=== PATIENT | female | born 1925 | race Caucasian/White ===

== ENCOUNTER 2017-05-03 14:14 | Inpatient (IN) | payer OTHER, MEDICARE ==
[2017-05-03 14:36] VITALS: BMI 23.8
[2017-05-03] MEDS ORDERED: morphine CARPU-JECT 2 MG/1 ML DISP.SYRIN IVPUSH ONE ×2 (14:41→18:02)
[2017-05-03] MEDS ORDERED: morphine CARPU-JECT 2 MG/1 ML DISP.SYRIN ONE (14:49)
--- NOTE | 2017-05-03 15:19 | PDOC ---
History of Present Illness - General Chief Complaint: Injury Stated Complaint: FALL Time Seen by Provider: 05/03/17 14:33 History Source: Patient Exam Limitations: No Limitations - History of Present Illness Initial Comments: 05/03/17 15:09 89-year-old female presents tpo the ED with complaints of right hip pain. As per patient she was walking which she was when she had tripped landing on her right side. Patient states was unable to get up and EMS states patient had a shortened and externally rotated right lower extremity. Patient denies previous injury to the affected area and denies any radiation of pain. Patient states had no LOC and did not strike her head. Patient's currently on aspirin. Occurred: reports: just prior to arrival Severity: reports: moderate Pain Location: reports: lower extremity Method of Injury: Yes: fall Modifying Factors: improves with: None Loss of Consciousness: no loss of consciousness Associated Symptoms (Fall): trouble walking Past History - Travel Traveled outside of the country in the last 30 days: No Close contact w/someone who was outside of country & ill: No - Past Medical History Allergies/Adverse Reactions: Allergies Allergy/AdvReac Type Severity Reaction Status Date / Time No Known Allergies Allergy Verified 05/03/17 14:39 Home Medications: Ambulatory Orders Furosemide [Lasix -] 40 mg PO DAILY #0 tablet 02/07/14 Amlodipine Besylate [Norvasc -] 5 mg PO DAILY tablet 06/14/16 Gabapentin [Neurontin -] 100 mg PO Q8H 05/03/17 Acetaminophen [Tylenol .Regular Strength -] 650 mg PO Q6H PRN #0 tablet Amlodipine Besylate [Norvasc -] 5 mg PO DAILY tablet 05/07/17 Aspirin [ASA -] 325 mg PO DAILY tablet 05/07/17 Calcitonin-[place] [Miacalcin [place] -] 200 units NS DAILY #1 bottle 05/07/17 Docusate Sodium [Colace -] 300 mg PO HS #30 tab 05/07/17 Ferrous Sulfate [Feosol] 325 mg PO BID #60 tab 05/07/17 Furosemide [Lasix -] 40 mg PO DAILY tablet 05/07/17 Metoprolol Succinate [Toprol XL -] 100 mg PO DAILY #30 tab 05/07/17 Metoprolol Succinate [Toprol XL -] 100 mg PO DAILY #30 tab.sr.24h 05/07/17 Oxycodone HCl [Roxicodone -] 5 mg PO Q6H PRN #0 tablet MDD 4 05/07/17 Ranitidine [Zantac -] 150 mg PO DAILY tablet 05/07/17 Anemia: No Asthma: No Cancer: No Cardiac Disorders: Yes (Afib, thoracic anuerysm) CVA: No COPD: No CHF: No Dementia: Yes Diabetes: No GI Disorders: No Disorders: No HTN: Yes Hypercholesterolemia: No Liver Disease: No Seizures: No Thyroid Disease: No Other medical history: arthritis, nerve pain, unsteady gait - Surgical History Abdominal Surgery: No Appendectomy: No Cardiac Surgery: Yes (AAA DISSECTION WITH REPAIR) Cholecystectomy: No Lung Surgery: No Orthopedic Surgery: No - Immunization History Immunization Up to Date: Yes - Psycho/Social/Smoking Cessation Hx Suicidal Ideation: No Smoking History: Unknown if ever smoked Have you smoked in the past 12 months: No Hx Alcohol Use: No Drug/Substance Use Hx: No Substance Use Type: None Hx Substance Use Treatment: No Patient Lives Alone: No Lives with/in: daughter Trauma Specific PMHX - Complaint Specific PMHX Arthritis: Yes Back Injury: No Review of Systems - Review of Systems Able to Perform ROS?: Yes Constitutional: No: Symptoms Reported Respiratory: No: Symptoms reported Cardiac (ROS): No: Symptoms Reported ABD/GI: No: Symptoms Reported Musculoskeletal: Yes: Joint Pain (right hip) Integumentary: No: Symptoms Reported Neurological: No: Symptoms reported *Physical Exam - Vital Signs Last Vital Signs Temp Pulse Resp BP Pulse Ox 98.0 F 73 16 169/59 95 05/03/17 14:33 05/03/17 14:33 05/03/17 14:33 05/03/17 14:33 05/03/17 14:33 - Physical Exam General Appearance: Yes: Nourished, Appropriately Dressed, Mild Distress (in pain) Neck: positive: Supple. negative: Tender, Decreased range of motion Respiratory/Chest: positive: Lungs Clear, Normal Breath Sounds. negative: Respiratory Distress, Accessory Muscle Use Cardiovascular: positive: Regular Rhythm, Regular Rate. negative: Murmur Gastrointestinal/Abdominal: positive: Soft. negative: Tenderness Extremity: positive: Normal Capillary Refill. negative: Normal Range of Motion (rle. externally rotated and shortened. tender over lateral aspect of right hip. unable to move rle) Neurologic: positive: Normal Mood/Affect, Motor Strength 5/5 (LLE and BUE) Heart Score/ECG Review - ECG Intrepretation Rhythm: Regular Rhythm (sinus rhythm at 73. no acute findings) ED Treatment Course - LABORATORY CBC & Chemistry Diagram: 05/07/17 06:00 05/07/17 06:00 - RADIOLOGY Radiology Studies Ordered: Category Date Time Status CHEST X-RAY PORTABLE* [RAD] Stat Radiology 05/03/17 14:41 Ordered HIP & PELVIS-RIGHT [RAD] Stat Radiology 05/03/17 14:42 Ordered Medical Decision Making - Medical Decision Making 05/03/17 15:50 Patient status post fall unable to move right lower extremity. Based on clinical exam patient is likely fracture and/or dislocation. Patient ordered for preop labs, IV morphine and imaging. 05/03/17 17:09 Laboratory Tests 05/03/17 05/03/17 05/03/17 15:15 15:15 15:15 WBC 4.9 Hgb 13.4 Hct 39.5 Plt Count 180 Neutrophils % 70.1 INR 1.10 Sodium 140 Potassium 4.3 Chloride 105 Carbon Dioxide 28 Anion Gap 7 L BUN 25 H D Creatinine 1.0 D Creat Clearance w eGFR 52.20 Random Glucose 108 H D Calcium 9.6 Total Bilirubin 0.4 D AST 24 ALT 23 D UA pending but will obtain once Evans catheter is placed. Case discussed with Dr. Reece secondary kelsy acute right femoral intertrochanteric fracture that will require orthopedic consultation and surgery. He is recommending Dr. Ngo or Narinder for consultation. 05/03/17 18:[address] Ngo and aware of consultation. Will eval pt shortly. Pt comfortable. Family at bedside *DC/Admit/Observation/Transfer Diagnosis at time of Disposition: Fracture, intertrochanteric, right femur Qualifiers: Encounter type: initial encounter Fracture alignment: displaced - Discharge Dispostion Disposition[facility] Condition at time of disposition: Improved Admit: Yes
[2017-05-03 15:28] LABS: BASOPHIL 0.8 % (0-2.0); EOSINOPHIL 1.5 % (0-4.5); MCH 30.3 pg (25.7-33.7); MCHC 33.9 g/dl (32.0-36.0); MEAN CELL VOLUME 89.3 fl (80-96); MEAN PLT VOLUME 8.8 fl (7.5-11.1); NEUTROPHILS 70.1 % (42.8-82.8); PLATELET COUNT 180 K/MM3 (134-434); WHITE BLOOD COUNT 4.9 K/mm3 (4.0-10.0)
[2017-05-03 15:51] LABS: INR 1.1 (0.82-1.09); PROTHROMBIN TIME (PATIENT) 12.1 SEC (9.98-11.88)
[2017-05-03 15:55] LABS: ALBUMIN 4.1 g/dl (3.4-5.0); ANION GAP 7 (8-16); BILIRUBIN,TOTAL 0.4 mg/dL (0.2-1.0); CALCIUM 9.6 mg/dL (8.5-10.1); CO2 28 mmol/L (21-32); GLUCOSE,RANDOM 108 mg/dL (74-106); SGOT/AST 24 U/L (15-37); SGPT/ALT 23 U/L (12-78); TOT PROT 7.5 g/dl (6.4-8.2)
[2017-05-03 15:56] LABS: ALK PHOS 110 U/L (45-117)
[2017-05-03] MEDS ORDERED: HYDROmorphone HCL CARPU-JECT 2 MG/1 ML DISP.SYRIN IVPUSH ONE (16:48)
--- NOTE | 2017-05-03 16:49 | PDOC ---
*Physical Exam - Vital Signs Last Vital Signs Temp Pulse Resp BP Pulse Ox 98.0 F 78 18 107/54 98 05/03/17 14:33 05/03/17 16:02 05/03/17 16:02 05/03/17 16:02 05/03/17 16:02 ED Treatment Course - LABORATORY CBC & Chemistry Diagram: 05/03/17 15:15 05/03/17 15:15 - ADDITIONAL ORDERS Additional order review: Laboratory Results 05/03/17 05/03/17 05/03/17 15:15 15:15 15:15 INR 1.10 Sodium 140 Potassium 4.3 Chloride 105 Carbon Dioxide 28 Anion Gap 7 L BUN 25 H D Creatinine 1.0 D Creat Clearance w eGFR 52.20 Random Glucose 108 H D Calcium 9.6 Total Bilirubin 0.4 D AST 24 ALT 23 D Alkaline Phosphatase 110 D Total Protein 7.5 Albumin 4.1 Blood Type O POSITIVE Antibody Screen Positive H 05/03/17 15:15 RBC 4.42 MCV 89.3 MCHC 33.9 RDW 14.0 MPV 8.8 Neutrophils % 70.1 Lymphocytes % 20.2 D Monocytes % 7.4 Eosinophils % 1.5 D Basophils % 0.8 D - Medications Given in the ED: ED Medications Discontinued Medications Generic Name Dose Route Start Last Admin Trade Name Freq PRN Reason Stop Dose Admin Morphine Sulfate 2 mg 05/03/17 14:41 05/03/17 15:20 Morphine Injection - IVPUSH 05/03/17 14:42 2 mg ONCE ONE Administration Medical Decision Making - Medical Decision Making 05/03/17 16:48 I agree with KRYSTYNA Williamson's history, assessment and plan. *DC/Admit/Observation/Transfer Diagnosis at time of Disposition: Fracture, intertrochanteric, right femur Qualifiers: Encounter type: initial encounter Fracture alignment: displaced - Attestations Physician Attestion: 05/04/17 07:38 I, Dr. Sadia Medina MD, attest that this document has been prepared under my direction and personally reviewed by me in its entirety. I further attest, that it accurately reflects all work, treatment, procedures and medical decision -making performed by me.
[2017-05-03] MEDS ORDERED: ONDANSETRON 4 MG/2 ML VIAL IVPB PRN (17:52)
[2017-05-03] MEDS ORDERED: ACETAMINOPHEN 325 MG TABLET (FP) PO PRN (17:52)
[2017-05-03] MEDS ORDERED: SODIUM CHLORIDE 500 ML IV STA (18:01)
[2017-05-03] MEDS ORDERED: HYDROmorphone HCL CARPU-JECT 1 MG/1 ML DISP.SYRIN ONE ×2 (18:20→19:58)
[2017-05-03] MEDS ORDERED: RANITIDINE HCL 150 MG TABLET (FP) ONE (19:45)
[2017-05-03] MEDS: RANITIDINE HCL 150 MG TABLET (FP) PO SCH (19:55)
[2017-05-03] MEDS: HYDROmorphone HCL CARPU-JECT 1 MG/1 ML DISP.SYRIN IVPB PRN (20:03)
[2017-05-03 20:12] LABS: URINE APPEARANCE SLCLOUDY; URINE BILIRUBIN NEGATIVE (NEGATIVE); URINE BLOOD NEGATIVE (NEGATIVE); URINE COLOR LTYELLOW; URINE GLUCOSE (UA) NEGATIVE (NEGATIVE); URINE KETONE NEGATIVE (NEGATIVE); URINE LEUK ESTERASE NEGATIVE (NEGATIVE); URINE NITRITE NEGATIVE (NEGATIVE); URINE UROBILINOGEN NEGATIVE mg/dL (0.2-1.0)
[2017-05-03 20:13] LABS: URINE PROTEIN 1+ (NEGATIVE)
[2017-05-03 20:14] LABS: URINE BACTERIA RARE /hpf (NONE SEEN); URINE MUCUS RARE; URINE RBC 1 /hpf (0-3); URINE WBC 1 /hpf (3-5)
--- NOTE | 2017-05-03 21:20 | CONSULT ---
Consult - text type - Consultation Consultation Note: FULL CONSULT DICTATE IMP: RIGHT IT HIP FX PLAN: MEDICAL OPTIMIZATION THEN ---> OR FOR RIGHT GAMMA NAIL, TENTATIVELY FOR FRIDAY
[2017-05-03] MEDS: HEPARIN NA (PORCINE) 5,000 UNITS/ML 1ML VIAL SQ SCH (21:53)
[2017-05-03] MEDS: DOCUSATE SODIUM 100 MG CAPSULE (FP) PO SCH (21:53)
[2017-05-04] MEDS: HYDROmorphone HCL CARPU-JECT 1 MG/1 ML DISP.SYRIN IVPB PRN ×3 (06:37→20:34)
[2017-05-04 08:11] LABS: MCH 30.1 pg (25.7-33.7); MCHC 34.1 g/dl (32.0-36.0); MEAN CELL VOLUME 88.3 fl (80-96); MEAN PLT VOLUME 8.6 fl (7.5-11.1); PLATELET COUNT 162 K/MM3 (134-434); RDW 13.7 % (11.6-15.6); WHITE BLOOD COUNT 6.7 K/mm3 (4.0-10.0)
[2017-05-04 08:38] LABS: ALBUMIN 3.9 g/dl (3.4-5.0); CALCIUM 8.6 mg/dL (8.5-10.1)
[2017-05-04 08:43] LABS: ALK PHOS 84 U/L (45-117); ANION GAP 7 (8-16); BILIRUBIN,TOTAL 0.9 mg/dL (0.2-1.0); CO2 26 mmol/L (21-32); CREATININE 0.7 mg/dL (0.55-1.02); GLUCOSE,RANDOM 114 mg/dL (74-106); SGOT/AST 22 U/L (15-37); SGPT/ALT 18 U/L (12-78); TOT PROT 6.7 g/dl (6.4-8.2)
[2017-05-04] MEDS: HEPARIN NA (PORCINE) 5,000 UNITS/ML 1ML VIAL SQ SCH ×2 (10:11→22:15)
[2017-05-04] MEDS: RANITIDINE HCL 150 MG TABLET (FP) PO SCH (10:11)
[2017-05-04] MEDS: FUROSEMIDE 40 MG TABLET (FP) PO SCH (10:11)
[2017-05-04] MEDS: amLODIPine BESYLATE 5 MG TABLET (FP) PO SCH (10:11)
[2017-05-04] MEDS: METOPROLOL SUCCINATE 100 MG TAB.SR.24H (FP) PO SCH (10:11)
--- NOTE | 2017-05-04 10:56 | HP ---
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 Cardiovascular: Yes: HTN ...: No Psych: Yes: Other Musculoskeletal: Yes: Osteoarthritis - Smoking History Smoking history: Unknown if ever smoked Have you smoked in the past 12 months: No - Alcohol/Substance Use Hx Alcohol Use: No Home Medications - Allergies Allergies/Adverse Reactions: Allergies Allergy/AdvReac Type Severity Reaction Status Date / Time No Known Allergies Allergy Verified 05/03/17 14:39 - Home Medications Home Medications: Ambulatory Orders Furosemide [Lasix -] 40 mg PO DAILY #0 tablet 02/07/14 Amlodipine Besylate [Norvasc -] 5 mg PO DAILY tablet 06/14/16 Metoprolol Succinate [Toprol XL -] 100 mg PO DAILY tab.sr.24h 06/14/16 Gabapentin [Neurontin -] 100 mg PO Q8H 05/03/17 Review of Systems - Review of Systems Constitutional: reports: No Symptoms Eyes: reports: No Symptoms HENT: reports: No Symptoms, Ocular Prosthesis Cardiovascular: reports: No Symptoms Respiratory: reports: No Symptoms Gastrointestinal: reports: No Symptoms Genitourinary: reports: Incontinence Musculoskeletal: reports: Extremity Pain, Joint Pain, Muscle Pain, Muscle Weakness Integumentary: reports: No Symptoms Neurological: reports: Pre-Existing Deficit Endocrine: reports: No Symptoms Hematology/Lymphatic: reports: No Symptoms Psychiatric: reports: No Symptoms Physical Examination Vital Signs: Vital Signs Temperature 98.5 F 05/04/17 08:04 Pulse Rate 98 H 05/04/17 08:04 Respiratory Rate 18 05/04/17 08:04 Blood Pressure 159/93 05/04/17 08:04 O2 Sat by Pulse Oximetry (%) 100 05/03/17 22:42 Findings/Remarks: SON BEDSIDE, PATIENT CAN NOT REMEMBER WHAT HAPPENED Constitutional: Yes: Moderate Distress Eyes: Yes: WNL HENT: Yes: WNL Neck: Yes: WNL Cardiovascular: Yes: WNL Respiratory: Yes: WNL Gastrointestinal: Yes: WNL Musculoskeletal: Yes: Muscle Pain, Muscle Weakness Extremities: Yes: Other Edema: No Peripheral Pulses WNL: Yes Integumentary: Yes: WNL Wound/Incision: Yes: Clean/Dry Neurological: Yes: Pre-Existing Deficit, Unresponsive, Unsteady Gait, Weakness ...Motor Strength: LLE, RLE Psychiatric: Yes: Other Labs: CBC, BMP 05/04/17 06:00 05/04/17 06:00 Imaging - Results X-ray: Report Reviewed Problem List - Problems (1) Fracture, intertrochanteric, right femur Code(s): S72.141A - DISPLACED INTERTROCHANTERIC FRACTURE OF RIGHT FEMUR, INIT Qualifiers: Encounter type: initial encounter Fracture alignment: displaced (2) Displaced fracture of right femoral neck Code(s): S72.001A - FRACTURE OF UNSP PART OF NECK OF RIGHT FEMUR, INIT (3) HTN (hypertension) Code(s): I10 - ESSENTIAL (PRIMARY) HYPERTENSION Qualifiers: Hypertension type: essential hypertension Qualified Code(s): I10 - Essential (primary) hypertension (4) Dementia Code(s): F03.90 - UNSPECIFIED DEMENTIA WITHOUT BEHAVIORAL DISTURBANCE Qualifiers: Dementia type: unspecified type Assessment/Plan MEDICAL CLEARANCE FOR GAMMA NAIL HIP SURGERY CARDIOLOGY EVAL PAIN CONTROL LABS
[2017-05-04] MEDS: CALCITONIN - SALMON SYNTHETIC 3.7 ML SPRAY.PUMP NS SCH (14:04)
--- NOTE | 2017-05-04 15:26 | CONS ---
DATE OF CONSULTATION: 05/03/2017 The patient is an 89-year-old female status post fall today, complaining of significant pain in the right hip with inability to ambulate. On physical exam, the patient has a shortened externally rotated right hip, marked increased pain with range of motion, full range of motion of the ankle and toes. Calf is soft, nontender. Neurovascularly intact. X-rays displaced right intertrochanteric hip fracture. IMPRESSION: Right intertrochanteric hip fracture. PLAN: The patient will be medically optimized, then scheduled for operative intervention with right gamma nailing, tentatively scheduled for Friday, pending medical clearance. JOHNSON ALEMAN M.D. DIOGO/[id number]
--- NOTE | 2017-05-04 15:36 | CON.CARD ---
Consult Consult Specialty:: cardiology for Ronny - History of Present Illness History of Present Illness: 89-year-old female presents tpo the ED with complaints of right hip pain. As per patient she was walking which she was when she had tripped landing on her right side. Patient states was unable to get up and EMS states patient had a shortened and externally rotated right lower extremity. Patient denies previous injury to the affected area and denies any radiation of pain. Patient states had no LOC and did not strike her head. Patient's currently on aspirin. 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 Cardio/Vascular: Yes: HTN ...: No Psych: Yes: Other Musculoskeletal: Yes: Osteoarthritis - Alcohol/Substance Use Hx Alcohol Use: No - Smoking History Smoking history: Unknown if ever smoked Have you smoked in the past 12 months: No Home Medications - Allergies Allergies/Adverse Reactions: Allergies Allergy/AdvReac Type Severity Reaction Status Date / Time No Known Allergies Allergy Verified 05/03/17 14:39 - Home Medications Home Medications: Ambulatory Orders Furosemide [Lasix -] 40 mg PO DAILY #0 tablet 02/07/14 Amlodipine Besylate [Norvasc -] 5 mg PO DAILY tablet 06/14/16 Metoprolol Succinate [Toprol XL -] 100 mg PO DAILY tab.sr.24h 06/14/16 Gabapentin [Neurontin -] 100 mg PO Q8H 05/03/17 Review of Systems - Review of Systems Constitutional: reports: No Symptoms Eyes: reports: No Symptoms HENT: reports: No Symptoms Neck: reports: No Symptoms Cardiovascular: reports: No Symptoms Gastrointestinal: reports: No Symptoms Genitourinary: reports: No Symptoms Breasts: reports: No Symptoms Reported Musculoskeletal: reports: No Symptoms Integumentary: reports: No Symptoms Neurological: reports: No Symptoms Endocrine: reports: No Symptoms Hematology/Lymphatic: reports: No Symptoms Psychiatric: reports: No Symptoms Vital Signs: Vital Signs Temperature 99.2 F 05/04/17 15:27 Pulse Rate 81 05/04/17 15:27 Respiratory Rate 18 05/04/17 15:27 Blood Pressure 146/65 05/04/17 15:27 O2 Sat by Pulse Oximetry (%) 94 L 05/04/17 09:00 Constitutional: Yes: Well Nourished, No Distress, Calm Eyes: Yes: WNL, Conjunctiva Clear, EOM Intact HENT: Yes: WNL, Atraumatic, Normocephalic Neck: Yes: WNL, Supple, Trachea Midline Respiratory: Yes: WNL, Regular, CTA Bilaterally Gastrointestinal: Yes: WNL, Normal Bowel Sounds Renal/: Yes: WNL Cardiovascular: Yes: WNL, Regular Rate and Rhythm Heart Sounds: Yes: S1, S2 Musculoskeletal: Yes: WNL Extremities: Yes: WNL Integumentary: Yes: WNL Neurological: Yes: WNL, Alert, Oriented ...Motor Strength: WNL Psychiatric: Yes: WNL, Alert, Oriented - Other Data Labs, Other Data: CBC, BMP 05/04/17 06:00 05/04/17 06:00 INR, PTT INR 1.10 (0.82-1.09) 05/03/17 15:15 Imaging - Results Chest X-ray: Image Reviewed (s/p sternpstomy) EKG: Image Reviewed (sr lvh ewp abn) Problem List - Problems (1) Dementia Code(s): F03.90 - UNSPECIFIED DEMENTIA WITHOUT BEHAVIORAL DISTURBANCE Qualifiers: Dementia type: unspecified type (2) Fracture, intertrochanteric, right femur Code(s): S72.141A - DISPLACED INTERTROCHANTERIC FRACTURE OF RIGHT FEMUR, INIT Qualifiers: Encounter type: initial encounter Fracture alignment: displaced (3) Displaced fracture of right femoral neck Code(s): S72.001A - FRACTURE OF UNSP PART OF NECK OF RIGHT FEMUR, INIT (4) Bronchitis Code(s): J40 - BRONCHITIS, NOT SPECIFIED ACUTE OR CHRONIC (5) Fever Code(s): R50.9 - FEVER, UNSPECIFIED (6) HTN (hypertension) Code(s): I10 - ESSENTIAL (PRIMARY) HYPERTENSION Qualifiers: Hypertension type: essential hypertension Qualified Code(s): I10 - Essential (primary) hypertension (7) Nausea and vomiting Code(s): R11.2 - NAUSEA WITH VOMITING, UNSPECIFIED Qualifiers: Vomiting type: unspecified Vomiting Intractability: non-intractable Qualified Code(s): R11.2 - Nausea with vomiting, unspecified (8) Near syncope Code(s): R55 - SYNCOPE AND COLLAPSE (9) Sinusitis Code(s): J32.9 - CHRONIC SINUSITIS, UNSPECIFIED (10) UTI (urinary tract infection) Code(s): N39.0 - URINARY TRACT INFECTION, SITE NOT SPECIFIED Qualifiers: Urinary tract infection type: acute cystitis Hematuria presence: without hematuria Qualified Code(s): N30.00 - Acute cystitis without hematuria (11) Weakness Code(s): R53.1 - WEAKNESS Assessment/Plan hip fx, s/p fall, htn, history of type A dissection s/p open surgical repair at [place] > 3 years ago, chronic HTN, PAF (remote history, no longer on full AC), dementia abn ekg plan ECHO if ef nl pt is low risk for gamma nail coverage for dr. Jefferson
--- NOTE | 2017-05-04 20:49 | EKG ---
Test Reason : Blood Pressure : / mmHG Vent. Rate : 073 BPM Atrial Rate : 073 BPM P-R Int : 208 ms QRS Dur : 118 ms QT Int : 402 ms P-R-T Axes : 033 -43 145 degrees QTc Int : 442 ms NORMAL SINUS RHYTHM WITH 1ST DEGREE A-V BLOCK LEFT AXIS DEVIATION RIGHT BUNDLE BRANCH BLOCK LEFT VENTRICULAR HYPERTROPHY CANNOT RULE OUT SEPTAL INFARCT (CITED ON OR BEFORE 11-JUN-2016) NONSPECIFIC T WAVE ABNORMALITY ABNORMAL ECG WHEN COMPARED WITH ECG OF 11-JUN-2016 21:22, NONSPECIFIC T WAVE ABNORMALITY MORE PROMINENT IN HIGH LATERAL LEADS Confirmed by BA ANTONY MD ([id number]) on 05/04/2017 8:49:00 PM Referred By: Confirmed By:BA ANTONY MD
[2017-05-04] MEDS: DOCUSATE SODIUM 100 MG CAPSULE (FP) PO SCH (22:15)
[2017-05-05] MEDS: HYDROmorphone HCL CARPU-JECT 1 MG/1 ML DISP.SYRIN IVPB PRN ×2 (05:40→21:39)
[2017-05-05 08:13] LABS: MCH 30.1 pg (25.7-33.7); MCHC 34.3 g/dl (32.0-36.0); MEAN PLT VOLUME 8.6 fl (7.5-11.1); PLATELET COUNT 172 K/MM3 (134-434); RDW 13.7 % (11.6-15.6); WHITE BLOOD COUNT 9.6 K/mm3 (4.0-10.0)
[2017-05-05 08:38] LABS: ANION GAP 11 (8-16); CALCIUM 9.2 mg/dL (8.5-10.1); CO2 28 mmol/L (21-32); GLUCOSE,RANDOM 129 mg/dL (74-106)
[2017-05-05 08:39] LABS: CREATININE 0.8 mg/dL (0.55-1.02)
--- NOTE | 2017-05-05 08:42 | PN ---
Progress Note, Physician Chief Complaint: no chest pain or SOB - Current Medication List Current Medications: Active Medications Acetaminophen (Tylenol -) 650 mg PO Q6H PRN PRN Reason: FEVER OR PAIN Amlodipine Besylate (Norvasc -) 5 mg PO DAILY [facility] Last Admin: 05/04/17 10:11 Dose: 5 mg Calcitonin (Miacalcin [place] -) 200 units NS DAILY [facility] Last Admin: 05/04/17 14:04 Dose: 200 units Docusate Sodium (Colace -) 300 mg PO HS [facility] Last Admin: 05/04/17 22:15 Dose: 300 mg Furosemide (Lasix -) 40 mg PO DAILY [facility] Last Admin: 05/04/17 10:11 Dose: 40 mg Heparin Sodium (Porcine) (Heparin -) 5,000 unit SQ BID [facility] Last Admin: 05/04/17 22:15 Dose: 5,000 unit Hydromorphone HCl (Dilaudid Injection -) 0.5 mg IVPB Q6H PRN PRN Reason: PAIN Last Admin: 05/05/17 05:40 Dose: 0.5 mg Metoprolol Succinate (Toprol Xl -) 100 mg PO DAILY [facility] Last Admin: 05/04/17 10:11 Dose: 100 mg Ondansetron HCl (Zofran Injection) 4 mg IVPB Q6H PRN PRN Reason: NAUSEA Ranitidine HCl (Zantac -) 150 mg PO DAILY [facility] Last Admin: 05/04/17 10:11 Dose: 150 mg - Objective Vital Signs: Vital Signs Temperature 99.5 F 05/05/17 06:00 Pulse Rate 92 H 05/05/17 06:00 Respiratory Rate 20 05/05/17 06:00 Blood Pressure 158/78 05/05/17 06:00 O2 Sat by Pulse Oximetry (%) 94 L 05/04/17 20:49 Constitutional: Yes: Calm Eyes: Yes: Conjunctiva Clear Cardiovascular: Yes: Regular Rate and Rhythm, Other (No murmur) Respiratory: Yes: CTA Bilaterally Gastrointestinal: Yes: Soft Edema: No Neurological: Yes: Alert Labs: CBC, BMP 05/05/17 07:00 INR, PTT INR 1.10 (0.82-1.09) 05/03/17 15:15 Laboratory Tests 05/05/17 05/05/17 07:00 07:00 WBC 9.6 D Hgb 12.1 Hct 35.2 Plt Count 172 Potassium Pending Creatinine Pending Assessment/Plan Hip fx, s/p fall History of type A dissection s/p open surgical repair at [place] > 3 years ago Chronic HTN PAF (remote history, no longer on full AC) Dementia Plan: There are presently no absolute contraindications to surgery for hip fracture. Echo planned for EF assessment, previously known to be normal. Continue beta lalito post op. DVT prophylaxis as per ortho protocol.
--- NOTE | 2017-05-05 08:59 | PN ---
Progress Note (short form) - Note Progress Note: Ortho Pt seen and examined- right IT fx RLE- shortened and ER, nvi a/p OR today for right IM gamma nail NPO
[2017-05-05] MEDS: HEPARIN NA (PORCINE) 5,000 UNITS/ML 1ML VIAL SQ SCH (09:14)
[2017-05-05] MEDS: RANITIDINE HCL 150 MG TABLET (FP) PO SCH (09:14)
[2017-05-05] MEDS: FUROSEMIDE 40 MG TABLET (FP) PO SCH (09:14)
[2017-05-05] MEDS: amLODIPine BESYLATE 5 MG TABLET (FP) PO SCH (09:14)
[2017-05-05] MEDS ORDERED: PT OWN MED DRAWER 7, Y5N ONE (09:56)
[2017-05-05] MEDS: METOPROLOL SUCCINATE 100 MG TAB.SR.24H (FP) PO SCH (10:03)
[2017-05-05] MEDS: CALCITONIN - SALMON SYNTHETIC 3.7 ML SPRAY.PUMP NS SCH (10:13)
[2017-05-05] MEDS ORDERED: PROPOFOL 20 ML ONE ×2 (14:16)
[2017-05-05] MEDS ORDERED: ceFAZolin SODIUM 1 GM VIAL ONE ×2 (14:16→21:35)
[2017-05-05] MEDS ORDERED: MIDAZOLAM HCL 2 MG/2 ML SINGLE DOSE VIAL ONE (14:16)
--- NOTE | 2017-05-05 14:50 | OP ---
Operative Note - Note: Operative Date: 05/05/17 Pre-Operative Diagnosis: RIGHT IT HIP FX Operation: RIGHT GAMMA NAIL Post-Operative Diagnosis: Same as Pre-op Surgeon: King Ngo Anesthesia: General Estimated Blood Loss (mls): 0 Operative Report Dictated: Yes
[2017-05-05] MEDS ORDERED: LACTATED RINGERS SOLUTION 1,000 ML IV SCH (15:00)
[2017-05-05] MEDS ORDERED: ceFAZolin SODIUM 1 GM VIAL IVPB ONE (15:05)
[2017-05-05] MEDS ORDERED: DEXAMETHASONE SOD PHOSPHATE 4 MG/1 ML VIAL ONE (15:12)
[2017-05-05] MEDS ORDERED: HYDROmorphone HCL CARPU-JECT 1 MG/1 ML DISP.SYRIN IVPUSH PRN (15:37)
[2017-05-05] MEDS ORDERED: ONDANSETRON 4 MG/2 ML VIAL IVPUSH PRN (15:37)
[2017-05-05] MEDS ORDERED: HYDROmorphone HCL CARPU-JECT 2 MG/1 ML DISP.SYRIN ONE (15:38)
[2017-05-05] MEDS ORDERED: HYDROmorphone HCL CARPU-JECT 2 MG/1 ML DISP.SYRIN IVPUSH ONE ×4 (15:40→16:25)
[2017-05-05] MEDS ORDERED: ONDANSETRON 4 MG/2 ML VIAL IVPB PRN (16:02)
[2017-05-05] MEDS ORDERED: ACETAMINOPHEN 325 MG TABLET (FP) PO PRN (16:02)
--- NOTE | 2017-05-05 17:01 | PN ---
Progress Note, Physician Chief Complaint: post op gamma nail right trochanter asleep comfortable - Current Medication List Current Medications: Active Medications Acetaminophen (Tylenol -) 650 mg PO Q6H PRN PRN Reason: FEVER OR PAIN Amlodipine Besylate (Norvasc -) 5 mg PO DAILY [facility] Aspirin (Asa -) 325 mg PO DAILY [facility] Calcitonin (Miacalcin [place] -) 200 units NS DAILY [facility] Docusate Sodium (Colace -) 300 mg PO HS [facility] Furosemide (Lasix -) 40 mg PO DAILY [facility] Hydromorphone HCl (Dilaudid Injection -) 0.5 mg IVPUSH [id number] PRN PRN Reason: PAIN Stop: 05/08/17 15:38 Hydromorphone HCl (Dilaudid Injection -) 0.5 mg IVPB Q6H PRN PRN Reason: PAIN Cefazolin Sodium (Ancef 1gm Ivpb (Pre-Docked)) 50 mls @ 100 mls/hr IVPB Q8H-IV ARSH Stop: 05/06/17 02:29 Lactated Ringer's (Lactated Ringers Solution) 1,000 mls @ 75 mls/hr IV ASDIR [facility] Metoprolol Succinate (Toprol Xl -) 100 mg PO DAILY [facility] Ondansetron HCl (Zofran Injection) 4 mg IVPUSH Q6H PRN PRN Reason: NAUSEA AND/OR VOMITING Stop: 05/05/17 21:38 Ondansetron HCl (Zofran Injection) 4 mg IVPB Q6H PRN PRN Reason: NAUSEA Ranitidine HCl (Zantac -) 150 mg PO DAILY [facility] - Objective Vital Signs: Vital Signs Temperature 98.8 F 05/05/17 15:33 Pulse Rate 86 05/05/17 15:33 Respiratory Rate 16 05/05/17 15:33 Blood Pressure 188/64 05/05/17 15:33 O2 Sat by Pulse Oximetry (%) 99 05/05/17 15:33 Constitutional: Yes: Mild Distress Eyes: Yes: WNL HENT: Yes: WNL Neck: Yes: WNL Cardiovascular: Yes: WNL Respiratory: Yes: WNL Gastrointestinal: Yes: WNL Genitourinary: Yes: Incontinence Musculoskeletal: Yes: Muscle Weakness Extremities: Yes: Other Edema: No Peripheral Pulses WNL: Yes Integumentary: Yes: WNL Wound/Incision: Yes: Dressing Dry and Intact Neurological: Yes: Pre-Existing Deficit ...Motor Strength: RLE Psychiatric: Yes: Other Labs: CBC, BMP 05/05/17 07:00 05/05/17 07:00 INR, PTT INR 1.10 (0.82-1.09) 05/03/17 15:15 Problem List - Problems (1) Fracture, intertrochanteric, right femur Code(s): S72.141A - DISPLACED INTERTROCHANTERIC FRACTURE OF RIGHT FEMUR, INIT Qualifiers: Encounter type: initial encounter Fracture alignment: displaced (2) Displaced fracture of right femoral neck Code(s): S72.001A - FRACTURE OF UNSP PART OF NECK OF RIGHT FEMUR, INIT (3) HTN (hypertension) Code(s): I10 - ESSENTIAL (PRIMARY) HYPERTENSION Qualifiers: Hypertension type: essential hypertension Qualified Code(s): I10 - Essential (primary) hypertension (4) Dementia Code(s): F03.90 - UNSPECIFIED DEMENTIA WITHOUT BEHAVIORAL DISTURBANCE Qualifiers: Dementia type: unspecified type Assessment/Plan s/p right trochanter fractture repair gamma nail inserted by orthopedics tolerated well will need snf dvt prophylaxis
[2017-05-05] MEDS ORDERED: CEFAZOLIN (PRE-DOCKED) 50 ML IVPB SCH ×2 (18:00→23:00)
[2017-05-05] MEDS ORDERED: CEFAZOLIN 1 GM in DEXTROSE 5%-WATER - 50 ML IVPB SCH (18:00)
[2017-05-05] MEDS: LACTATED RINGERS SOLUTION 1,000 ML IV SCH ×2 (18:10→21:40)
[2017-05-05] MEDS: DOCUSATE SODIUM 100 MG CAPSULE (FP) PO SCH (21:19)
[2017-05-05] MEDS ORDERED: DEXTROSE 5%-WATER - 50 ML IVPB ONE (21:36)
[2017-05-05] MEDS: CEFAZOLIN 1 GM in DEXTROSE 5%-WATER - 50 ML IVPB SCH (22:48)
[2017-05-06] MEDS: HYDROmorphone HCL CARPU-JECT 1 MG/1 ML DISP.SYRIN IVPB PRN ×4 (05:17→23:09)
--- NOTE | 2017-05-06 08:16 | PN ---
Progress Note (short form) - Note Progress Note: Anesthesia POD#1 S/P Right hip Gamma nail under GA VSS,pain is well controlled.Food will be advanced today. awake and smiley.No N/V seen. Kaylee Saeed MD.
--- NOTE | 2017-05-06 08:16 | SPEC ---
DATE OF OPERATION: 05/05/2017 OPERATION: Right Gamma nailing. PREOPERATIVE DIAGNOSIS: Right intertrochanteric hip fracture. POSTOPERATIVE DIAGNOSIS: Right intertrochanteric hip fracture. SURGEON: King Ngo M.D. ANESTHESIA: General with LMA. CLOSURE: A short Gamma nail with appropriate interlocks. No. 0 Vicryl for fascia, 2-0 for subcutaneous, and ron for skin. ESTIMATED BLOOD LOSS: Negligible. COMPLICATIONS: None. CONDITION: Recovery room in stable condition. DESCRIPTION OF OPERATIVE PROCEDURE: The patient was taken to the operating room. Spinal anesthesia was administered by the anesthesiologist. IV antibiotic prophylaxis was administered prior to the case. Patient was fastened to the fracture table with all prominences well padded. The right hip fracture was reduced with confirmation of excellent reduction from the AP and lateral planes using the image intensifier. A small 1-inch incision was made at the greater tip of the greater trochanter. Hemostasis was achieved with Bovie cautery. Sharp dissection was carried through the fascia. The K-wire was drilled from the tip of the greater trochanter past the fracture into the intramedullary canal. Proper placement was confirmed of the AP and lateral planes by using the image intensifier. This was overreamed with a proximal reamer using the tissue protector to protect the soft tissue in the region. A short Gamma nail was then malletted down into place into the intramedullary canal to the appropriate level. Using the outrigger and a small stab incision laterally, a Guidewire was drilled from one aspect of the femur through the femoral neck into the femoral head. Proper placement was confirmed of the AP and lateral planes using image intensifier. The wire was measured for length and was overreamed with a triple reamer and was screwed with the appropriate-length lag screw. Confirmation of appropriate depth was confirmed in the AP and lateral planes by using image intensifier. Traction was reduced. The compression device was used to compress the fracture and a screw was placed from above in a dynamic fashion. Again, using the outrigger and a small stab incision laterally, the distal locking screw was placed by drilling and using an appropriate-sized screw. The outrigger was removed. Confirmation of excellent reduction was confirmed in the AP and lateral planes by using image intensifier with excellent position of the hardware. All incisions were irrigated with copious amounts of irrigation. The fascia was closed with 0 Vicryl, 2-0 for subcutaneous and 3-0 Monocryl subcuticular for skin. A sterile pressure dressing was applied. The patient was awakened from anesthesia and transferred to recovery room in stable condition. No complications. Estimated blood loss less than 100 mL. [place] [id number]
--- NOTE | 2017-05-06 08:41 | PN ---
Progress Note, Physician Chief Complaint: POD #1 Looks comfortable No chest pain or SOB - Current Medication List Current Medications: Active Medications Acetaminophen (Tylenol -) 650 mg PO Q6H PRN PRN Reason: FEVER OR PAIN Amlodipine Besylate (Norvasc -) 5 mg PO DAILY [facility] Aspirin (Asa -) 325 mg PO DAILY [facility] Calcitonin (Miacalcin [place] -) 200 units NS DAILY [facility] Docusate Sodium (Colace -) 300 mg PO HS [facility] Last Admin: 05/05/17 21:19 Dose: Not Given Furosemide (Lasix -) 40 mg PO DAILY [facility] Hydromorphone HCl (Dilaudid Injection -) 0.5 mg IVPUSH [id number] PRN PRN Reason: PAIN Stop: 05/08/17 15:38 Hydromorphone HCl (Dilaudid Injection -) 0.5 mg IVPB Q6H PRN PRN Reason: PAIN Last Admin: 05/06/17 05:17 Dose: 0.5 mg Lactated Ringer's (Lactated Ringers Solution) 1,000 mls @ 75 mls/hr IV ASDIR [facility] Last Admin: 05/05/17 21:40 Dose: 75 mls/hr Cefazolin Sodium 1 gm/ (Dextrose) 50 mls @ 100 mls/hr IVPB Q8H-IV [facility] Last Admin: 05/05/17 22:48 Dose: 100 mls/hr Metoprolol Succinate (Toprol Xl -) 100 mg PO DAILY [facility] Ondansetron HCl (Zofran Injection) 4 mg IVPB Q6H PRN PRN Reason: NAUSEA Ranitidine HCl (Zantac -) 150 mg PO DAILY [facility] - Objective Vital Signs: Vital Signs Temperature 99.2 F 05/06/17 06:00 Pulse Rate 88 05/06/17 06:00 Respiratory Rate 20 05/06/17 06:00 Blood Pressure 132/61 05/06/17 06:00 O2 Sat by Pulse Oximetry (%) 95 05/05/17 21:00 Constitutional: Yes: Calm HENT: Yes: Atraumatic Cardiovascular: Yes: Regular Rate and Rhythm Respiratory: Yes: CTA Bilaterally Gastrointestinal: Yes: Soft Edema: No Neurological: Yes: Alert, Oriented Labs: CBC, BMP 05/05/17 07:00 05/05/17 07:00 INR, PTT INR 1.10 (0.82-1.09) 05/03/17 15:15 Assessment/Plan Hip fx, s/p fall POD #1 Gamma Nail 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
[2017-05-06 09:27] LABS: MCH 29.5 pg (25.7-33.7); MCHC 33.3 g/dl (32.0-36.0); MEAN CELL VOLUME 88.6 fl (80-96); MEAN PLT VOLUME 8.6 fl (7.5-11.1); PLATELET COUNT 172 K/MM3 (134-434); RDW 13.6 % (11.6-15.6); WHITE BLOOD COUNT 11.1 K/mm3 (4.0-10.0)
[2017-05-06] MEDS ORDERED: ceFAZolin SODIUM 1 GM VIAL ONE ×2 (09:35→18:01)
[2017-05-06] MEDS ORDERED: DEXTROSE 5%-WATER - 50 ML IVPB ONE ×2 (09:35→18:01)
[2017-05-06] MEDS: CEFAZOLIN 1 GM in DEXTROSE 5%-WATER - 50 ML IVPB SCH ×2 (09:37→18:05)
[2017-05-06] MEDS: METOPROLOL SUCCINATE 100 MG TAB.SR.24H (FP) PO SCH (09:39)
[2017-05-06] MEDS: RANITIDINE HCL 150 MG TABLET (FP) PO SCH (09:39)
[2017-05-06] MEDS: ASPIRIN 325 MG TABLET PO SCH (09:39)
[2017-05-06] MEDS: amLODIPine BESYLATE 5 MG TABLET (FP) PO SCH (09:39)
[2017-05-06] MEDS: FUROSEMIDE 40 MG TABLET (FP) PO SCH (09:39)
[2017-05-06 09:47] LABS: ANION GAP 8 (8-16); CALCIUM 9.2 mg/dL (8.5-10.1); CO2 30 mmol/L (21-32); CREATININE 0.7 mg/dL (0.55-1.02); GLUCOSE,RANDOM 110 mg/dL (74-106)
[2017-05-06] MEDS ORDERED: ASPIRIN 325 MG TABLET PO SCH (10:00)
[2017-05-06] MEDS: CALCITONIN - SALMON SYNTHETIC 3.7 ML SPRAY.PUMP NS SCH (11:03)
[2017-05-06] MEDS: LACTATED RINGERS SOLUTION 1,000 ML IV SCH (15:14)
--- NOTE | 2017-05-06 15:29 | PN ---
Progress Note (short form) - Note Progress Note: AVSS COMFORTABLE BANDAGES DRY AND INTACT CALF SOFT AND NT NVI HCT+ 29.5 IMP: DOING WELL PLAN:l OOB,PT,WBAT, DC PLANNING TO SNF
--- NOTE | 2017-05-06 17:03 | PN ---
Progress Note, Physician Chief Complaint: AWAKE ALERT NAD - Current Medication List Current Medications: Active Medications Acetaminophen (Tylenol -) 650 mg PO Q6H PRN PRN Reason: FEVER OR PAIN Amlodipine Besylate (Norvasc -) 5 mg PO DAILY [facility] Last Admin: 05/06/17 09:39 Dose: 5 mg Aspirin (Asa -) 325 mg PO DAILY [facility] Last Admin: 05/06/17 09:39 Dose: 325 mg Calcitonin (Miacalcin [place] -) 200 units NS DAILY [facility] Last Admin: 05/06/17 11:03 Dose: 1 spray Docusate Sodium (Colace -) 300 mg PO HS [facility] Last Admin: 05/05/17 21:19 Dose: Not Given Furosemide (Lasix -) 40 mg PO DAILY [facility] Last Admin: 05/06/17 09:39 Dose: 40 mg Hydromorphone HCl (Dilaudid Injection -) 0.5 mg IVPUSH [id number] PRN PRN Reason: PAIN Stop: 05/08/17 15:38 Hydromorphone HCl (Dilaudid Injection -) 0.5 mg IVPB Q6H PRN PRN Reason: PAIN Last Admin: 05/06/17 11:18 Dose: 0.5 mg Lactated Ringer's (Lactated Ringers Solution) 1,000 mls @ 75 mls/hr IV ASDIR [facility] Last Admin: 05/06/17 15:14 Dose: 75 mls/hr Cefazolin Sodium 1 gm/ (Dextrose) 50 mls @ 100 mls/hr IVPB Q8H-IV [facility] Last Admin: 05/06/17 09:37 Dose: 100 mls/hr Metoprolol Succinate (Toprol Xl -) 100 mg PO DAILY [facility] Last Admin: 05/06/17 09:39 Dose: 100 mg Ondansetron HCl (Zofran Injection) 4 mg IVPB Q6H PRN PRN Reason: NAUSEA Ranitidine HCl (Zantac -) 150 mg PO DAILY [facility] Last Admin: 05/06/17 09:39 Dose: 150 mg - Objective Vital Signs: Vital Signs Temperature 98.5 F 05/06/17 14:39 Pulse Rate 87 05/06/17 14:39 Respiratory Rate 20 05/06/17 10:00 Blood Pressure 98/69 05/06/17 14:39 O2 Sat by Pulse Oximetry (%) 97 05/06/17 10:25 Constitutional: Yes: No Distress Eyes: Yes: WNL HENT: Yes: WNL Neck: Yes: WNL Cardiovascular: Yes: WNL Respiratory: Yes: WNL Gastrointestinal: Yes: WNL Musculoskeletal: Yes: Muscle Weakness Extremities: Yes: Other Edema: No Peripheral Pulses WNL: Yes Integumentary: Yes: Other Wound/Incision: Yes: Clean/Dry, Dressing Dry and Intact Neurological: Yes: Pre-Existing Deficit ...Motor Strength: LLE, RLE Psychiatric: Yes: WNL Labs: CBC, BMP 05/06/17 08:55 05/06/17 08:55 INR, PTT INR 1.10 (0.82-1.09) 05/03/17 15:15 Problem List - Problems (1) Fracture, intertrochanteric, right femur Code(s): S72.141A - DISPLACED INTERTROCHANTERIC FRACTURE OF RIGHT FEMUR, INIT Qualifiers: Encounter type: initial encounter Fracture alignment: displaced (2) Displaced fracture of right femoral neck Code(s): S72.001A - FRACTURE OF UNSP PART OF NECK OF RIGHT FEMUR, INIT (3) HTN (hypertension) Code(s): I10 - ESSENTIAL (PRIMARY) HYPERTENSION Qualifiers: Hypertension type: essential hypertension Qualified Code(s): I10 - Essential (primary) hypertension (4) Dementia Code(s): F03.90 - UNSPECIFIED DEMENTIA WITHOUT BEHAVIORAL DISTURBANCE Qualifiers: Dementia type: unspecified type Assessment/Plan IRON TABLETS STARTED DC PLANNING PT EVAL
[2017-05-06] MEDS ORDERED: FERROUS SO4 300 MG/5 ML ORAL SOLN UNIT DOSE CUPS PO SCH (17:15)
[2017-05-06] MEDS: DOCUSATE SODIUM 100 MG CAPSULE (FP) PO SCH (21:16)
[2017-05-06] MEDS: FERROUS SO4 325 MG TABLET (FP) PO SCH (21:16)
[2017-05-07] MEDS ORDERED: DEXTROSE 5%-WATER - 50 ML IVPB ONE (01:13)
[2017-05-07] MEDS ORDERED: ceFAZolin SODIUM 1 GM VIAL ONE (01:13)
[2017-05-07] MEDS: CEFAZOLIN 1 GM in DEXTROSE 5%-WATER - 50 ML IVPB SCH ×2 (01:16→10:39)
[2017-05-07] MEDS: HYDROmorphone HCL CARPU-JECT 1 MG/1 ML DISP.SYRIN IVPB PRN (06:01)
[2017-05-07] MEDS ORDERED: oxyCODONE HCL 5 MG TABLET PO PRN (07:23)
--- NOTE | 2017-05-07 07:26 | DS ---
Physical Examination Vital Signs: Vital Signs Temperature 99.7 F H 05/07/17 05:52 Pulse Rate 97 H 05/07/17 05:52 Respiratory Rate 20 05/07/17 05:52 Blood Pressure 122/72 05/07/17 05:52 O2 Sat by Pulse Oximetry (%) 97 05/06/17 10:25 Constitutional: Yes: No Distress Eyes: Yes: WNL HENT: Yes: WNL Neck: Yes: WNL Cardiovascular: Yes: WNL Respiratory: Yes: WNL Gastrointestinal: Yes: WNL Renal/: Yes: WNL Musculoskeletal: Yes: Muscle Pain, Muscle Weakness Extremities: Yes: WNL Edema: No Peripheral Pulses WNL: Yes Integumentary: Yes: WNL Wound/Incision: Yes: Dressing Dry and Intact Neurological: Yes: Pre-Existing Deficit ...Motor Strength: LLE, RLE Psychiatric: Yes: Other Labs: CBC, BMP 05/06/17 08:55 05/06/17 08:55 Discharge Summary Reason For Visit: DISPLACED FRACTURE OF RIGHT FEMORAL NECK Current Active Problems Dementia (Acute) Fracture, intertrochanteric, right femur (Acute) Procedures: Principal: gamma pin right greater trochanter Other Procedures: xrays/labs Hospital Course: admitted for trochanter fracture right hip, gamma pin placed, tolerated well, needs pt/rehab Condition: Improved - Instructions Diet, Activity, Other Instructions: dysphagia precautions Referrals: Gaby Reece MD [Primary Care Provider] - Disposition: [facility] - Home Medications Comprehensive Discharge Medication List: Ambulatory Orders Furosemide [Lasix -] 40 mg PO DAILY #0 tablet 02/07/14 Amlodipine Besylate [Norvasc -] 5 mg PO DAILY tablet 06/14/16 Metoprolol Succinate [Toprol XL -] 100 mg PO DAILY tab.sr.24h 06/14/16 Gabapentin [Neurontin -] 100 mg PO Q8H 05/03/17
[2017-05-07 07:59] LABS: MCH 30.3 pg (25.7-33.7); MCHC 34.6 g/dl (32.0-36.0); MEAN CELL VOLUME 87.5 fl (80-96); MEAN PLT VOLUME 8.7 fl (7.5-11.1); PLATELET COUNT 169 K/MM3 (134-434); RDW 13.7 % (11.6-15.6); WHITE BLOOD COUNT 9.9 K/mm3 (4.0-10.0)
[2017-05-07 08:24] LABS: ANION GAP 9 (8-16); CALCIUM 8.7 mg/dL (8.5-10.1); CO2 32 mmol/L (21-32); CREATININE 0.6 mg/dL (0.55-1.02); GLUCOSE,RANDOM 113 mg/dL (74-106)
--- NOTE | 2017-05-07 08:38 | PN ---
Progress Note (short form) - Note Progress Note: hemodynamically stable, vitals reviewed. No CV complaints S1-2 Reg Chest CTA No edema Tolerated Gamma Nail well No CV objections to discharge.
[2017-05-07] MEDS: FUROSEMIDE 40 MG TABLET (FP) PO SCH (09:04)
[2017-05-07] MEDS: ASPIRIN 325 MG TABLET PO SCH (09:04)
[2017-05-07] MEDS: METOPROLOL SUCCINATE 100 MG TAB.SR.24H (FP) PO SCH (09:04)
[2017-05-07] MEDS: RANITIDINE HCL 150 MG TABLET (FP) PO SCH (09:04)
[2017-05-07] MEDS: FERROUS SO4 325 MG TABLET (FP) PO SCH (09:04)
[2017-05-07] MEDS: amLODIPine BESYLATE 5 MG TABLET (FP) PO SCH (09:04)
[2017-05-07] MEDS: CALCITONIN - SALMON SYNTHETIC 3.7 ML SPRAY.PUMP NS SCH (09:07)
[2017-05-07 10:41] VITALS: BP 109/69; PULSE 99; TEMP 99.3
== END 2017-05-07 12:09 | DRG 482 ==
LOC: JER 14:14 → JERBED 17:21 → J6S 20:55
PROVIDERS: ADMIT Family Medicine; ATTEND Family Medicine
PROC: 0QS604Z Reposition Right Upper Femur with Internal Fixation Device, Open Approach (ICD-10-PCS; principal; 2017-05-05 14:30)
DX: S72.141A Displaced intertrochanteric fracture of right femur, initial encounter for closed fracture (principal); I10 Essential (primary) hypertension; I48.0 Paroxysmal atrial fibrillation; F03.90 Unspecified dementia, unspecified severity, without behavioral disturbance, psychotic disturbance, mood disturbance, and anxiety; W01.0XXA Fall on same level from slipping, tripping and stumbling without subsequent striking against object, initial encounter; Y93.89 Activity, other specified; Y92.098 Other place in other non-institutional residence as the place of occurrence of the external cause; Y99.8 Other external cause status
CPT/HCPCS: 36415; 71010-TC; 73523-TC; 76000-TC; 80048; 80053; 81003; 81015; 85025; 85027; 85610; 86850; 86870; 86900; 86901; 86902; 93005; 93010; 93306-TC; 94010; 94760; 97116-GP; 97161-GP; 99285-25; J1644